=== PATIENT | male | born 1945 | race Caucasian/White ===

== ENCOUNTER 2016-12-10 10:33 | Day surgery (SDC) | payer OTHER ==
[~2016-12-10] VITALS: Ht 180.3 cm; Wt 124.6 kg
[2016-12-10] MEDS ORDERED: HEPARIN-D5W 25,000 U/250 ML 250 ML ONE (13:02)
[2016-12-10] MEDS ORDERED: HEPARIN SODIUM - IV 10,000 UNITS/10 ML VIAL ONE ×2 (13:03→15:46)
[2016-12-10] MEDS ORDERED: ISOPROTERENOL HCL 1 MG/5 ML AMP ONE (13:03)
[2016-12-10] MEDS ORDERED: PROTAMINE SULFATE 50 MG/5 ML VIAL ONE (13:03)
[2016-12-10 13:29] LABS: AUTOMATED NEUTROPHIL # 4.2 TH/MM3 (1.8-7.7); BASOPHIL # 0.1 TH/MM3 (0-0.2); BASOPHIL % 0.8 % (0.0-2.0); EOSINOPHIL % 0.6 % (0.0-4.0); HEMATOCRIT 38.6 % (39.0-51.0); HEMO FLAGS DIFF FINAL; LYMPH % 29.9 % (9.0-44.0); LYMPHOCYTE # 2.1 TH/MM3 (1.0-4.8); MEAN CELL VOLUME 95.8 FL (80.0-100.0); MEAN CORPUSCULAR HEMOGLOBIN 34.2 PG (27.0-34.0); MEAN CORPUSCULAR HGB CONC 35.7 % (32.0-36.0); MONO % 8.1 % (0.0-8.0); NEUT % 60.6 % (16.0-70.0); PLATELET COUNT 221 TH/MM3 (150-450); RED BLOOD COUNT 4.03 MIL/MM3 (4.50-5.90); RED CELL DISTRIBUTION WIDTH 13.6 % (11.6-17.2); WHITE BLOOD COUNT 6.9 TH/MM3 (4.0-11.0)
[2016-12-10 13:37] LABS: APTT (PATIENT) 36.3 SEC (24.3-30.1); INTERNATIONAL NORMALIZED RATIO 1.5 RATIO; PROTHROMBIN TIME - PATIENT 16.9 SEC (9.8-11.6)
[2016-12-10] MEDS ORDERED: WARF-23 PO (13:40)
[2016-12-10] MEDS ORDERED: ALLO300T2 PO (13:40)
[2016-12-10 13:57] LABS: BICARBONATE 25.6 MEQ/L (21.0-32.0); POTASSIUM 3.6 MEQ/L (3.5-5.1)
[2016-12-10 14:02] VITALS: BP 150/87; PULSE 76; RESP 18; TEMP 97.5; O2SAT 94
[2016-12-10] MEDS ORDERED: PROPOFOL 200 MG/20 ML AMP IV ONE (14:10)
[2016-12-10] MEDS ORDERED: TRANEXAMIC ACID INJ 1,000 MG/10 ML AMP IV ONE (14:10)
[2016-12-10] MEDS ORDERED: METOPROLOL TARTRATE 25 MG TAB PO PRN (14:30)
[2016-12-10] MEDS ORDERED: LACTATED RINGER'S 1000 ML IV PRN (14:30)
[2016-12-10] MEDS ORDERED: SODIUM CHLORID 0.9% 500 ML INJ 500 ML IV SCH (14:30)
[2016-12-10] MEDS ORDERED: CHLORHEXIDINE GLUCONATE 2 % 1 PACK (2 CLOTHS) TOPICAL PRN (14:30)
[2016-12-10] MEDS ORDERED: INSULIN HUMAN REGULAR 1,000 UNITS/10 ML VIAL SQ PRN (14:30)
[2016-12-10] MEDS ORDERED: POVIDONE IODINE 5% (ANTISEPSIS KIT) 4 APPLICATIONS EACH NARE PRN (14:30)
[2016-12-10] MEDS ORDERED: LORazepam 1 MG TAB SL SCH (14:30)
[2016-12-10] MEDS ORDERED: SODIUM CHLORID 0.9% 500 ML IV PRN (14:30)
[2016-12-10] MEDS ORDERED: LEVOFLOXACIN 500 MG PREMIX INJ 100 ML IV ONE (14:31)
[2016-12-10] MEDS ORDERED: HEPARIN-NS/PF INJ 500 ML ONE (14:31)
[2016-12-10] MEDS ORDERED: FUROSEMIDE 40 MG/4 ML VIAL ONE (17:25)
[2016-12-10] MEDS ORDERED: METOCLOPRAMIDE HCL 10 MG/2 ML VIAL IV PRN (17:30)
[2016-12-10] MEDS ORDERED: LORazepam 2 MG/ML VIAL IV PRN (17:30)
[2016-12-10] MEDS ORDERED: oxyCODONE/ACETAMINOPHEN 5 MG/325 MG TAB PO PRN ×2 (17:30)
[2016-12-10] MEDS ORDERED: SODIUM CHLOR 0.9% 250 ML INJ 250 ML IV PRN (17:30)
[2016-12-10] MEDS ORDERED: BACITRACIN OINT 0.9 GM PKT TOP ONE (17:30)
[2016-12-10] MEDS ORDERED: ONDANSETRON HCL 4 MG/2 ML VIAL IV PRN (17:30)
[2016-12-10] MEDS ORDERED: ATROPINE SULFATE 1 MG/ML VIAL IV PRN (17:30)
[2016-12-10] MEDS ORDERED: LIDOCAINE HCL 1% 50 ML VIAL INFIL PRN (17:30)
[2016-12-10] MEDS ORDERED: fentaNYL CITRATE 250 MCG/5 ML AMP ONE (17:57)
--- NOTE | 2016-12-10 18:04 | CATHPROC ---
[facility] Report Study Information Study Number Admission Scheduled Start Study Start [id number] Dec 10 2016 10:33AM 12/10/2016 Dec 10 2016 1:57PM [place] Service Electrophysiology Study Admit Source Facility Department Other [facility] Physician and Clinical Staff Initial Traci Mcduffie Lie Detector Operator Leigh Renner,ANANT Lie Detector Operator Miranda Tubbs,CLINICAL MANAGER HOME CARE TECH2 Other Anesthesia, SODA CLERK Recorder Jodi Rendon,TIMO Wilsonub Irasema Leong,RT(R) TECH2 Procedures Performed Procedure Location (Site) Vessel Name Cardioversion ICE CATHETER INSERT RA Atruim RF Ablation LT. ATRIUM LT. ATRIUM Equipment Time Store Receiver Description Size Mfg Part Number Used/Scraped NEEDLE, TRANSSEPTAL NRG 98 14:42 [facility] [id number] Used C1 [employer]/ EP 14:42 KIT, TRANSDUCER / AFIB [id number] Used PACER [id number] CATHETER, TACTICATH ABLAT BUNDLE 14:42 BUNDLE-[facility] Used 65 BUNDLE *[id number] BUNDLE [id number] CATHETER, FR7 OPTIMA SPIRAL 14:42 BUNDLE-[facility] FR7 *[id number] Used BUNDLE BUNDLE [id number] 14:42 BUNDLE-[facility] CATHETER, JSN, QUAD BUNDLE FR 5 *[id number] Used BUNDLE [id number] 14:42 BUNDLE-[employer] CATHETER, JSN, QUAD BUNDLE FR 5 *[id number] Used BUNDLE [id number] SET, COOL [place]INT TUBING 14:42 BUNDLE-[employer] K[facility]IN *[id number]- Used BUNDLE BUNDLE SHEATH, FR8.5 STEERABLE SM 14:42 BUNDLE-[facility] K[facility]IN 71CM [id number] Used 71CM BUNDLE COVER, TRANSDUCER CABLE 14:42 [employer] [employer] [id number] Used ACUNAV 14:42 CORDIS/PACER SHEATH, FR10 HOME 11CM FR 10 [id number] Used 14:42 CORDIS/PACER SHEATH, FR9 HOME 11CM FR 9 [id number] Used [id number] 14:42 [employer] PACK, CCL CUSTOM * Used *[id number] 14:42 MEDLINE PACER PECK, LIMB * 2690 *[id number] Used [id number] 14:42 [employer] MEDICAL SHEATH, FR4.5 PRELUDE 11CM FR 4.5 Used [id number] 14:42 NAMIC TUBING, HIGH PRESSURE 48" 48" Used *[id number] 14:42 NAMIC TUBING, HIGH PRESSURE 48" 48" Used *[id number] 14:42 [employer] MEDICAL BLANKET,WARM AIR CCL * Used *[id number] 14:42 [facility] MEDICAL ELECTRODE KIT, ROSAURA X SURFACE * [id number] Used 14:42 [facility] MEDICAL SHEATH, EPS, FR6 FAST CATH FR [id number] 14:42 [facility] MEDICAL SHEATH, EPS, FR7 FAST CATH FR [id number] 14:42 [facility] MEDICAL SHEATH, EPS, FR8 FAST CATH FR 8 [id number] Used CATHETER, ACUNAV FR10 ICE [id number] 15:34 RAJAT FR 10 Used (RAJAT) *[id number] [facility] PAD, ELECTROSURGICAL 14:42 * [id number] *[id number] Used SURGICAL GROUNDING (BLUE) History: Allergies Allergy Reaction No Known Allergies History: Risk Factors Hypertension Dyslipidemia Previous Heart Failure Yes Yes Yes Chronic Lung Disease Labs Hgb (g/dl) Hct (%) RBC (MIL/MM3) WBC (l/cumm) Platelets (thousands) 11.60-17.00 35.00-51.00 4.00-5.90 4.00-11.00 150.00-450.00 13.0 38 4 6.9 221 Glucose (mg/dl) BUN (mg/dl) Creatinine (mg/dl) BUN:Creatinine (1:x) 74.00-106.00 7.00-18.00 0.50-1.30 10.00-20.00 88 11 0.9 12.2 Na (meq/l) K (meq/l) 136.00-145.00 3.50-5.10 141 3.6 INR (PTT:PT) 0.90-1.10 1.5 Medication Medication Total Dose (Bolus/Oral) Medication Total Dosage/Unit 1% XYLOCAINE 40 mL HEPARIN 71657 units LASIX 40 mg PROTAMINE 40 mg Medications (Bolus/Oral) Medication Time Given Dosage/Unit Administered By Reason 1% XYLOCAINE 12/10/2016 3:21:17 PM 20 mL Traci Abel 20 mL 1% XYLOCAINE given in lab by Traci Abel in Left Groin via Subcutaneous. 1% XYLOCAINE 12/10/2016 3:30:00 PM 20 mL Traci Abel 20 mL 1% XYLOCAINE given in lab by Traci Abel in Right Groin via Subcutaneous. HEPARIN 12/10/2016 3:34:54 PM 78563 units Anesthesia, SODA CLERK As per physicians v erbal order 93329 units HEPARIN given in lab by Anesthesia, SODA CLERK via Peripheral IV. Ordered by Traci Abel. [place] son: As per physicians verbal order. HEPARIN 12/10/2016 3:48:00 PM 2000 units Anesthesia, SODA CLERK As per physicians ve rbal order 2000 units HEPARIN given in lab by Anesthesia, SODA CLERK via Peripheral IV. Ordered by Traci Abel. Reas on: As per physicians verbal order. HEPARIN 12/10/2016 4:03:45 PM 4000 units Anesthesia, SODA CLERK As per physicians ve rbal order 4000 units HEPARIN given in lab by Anesthesia, SODA CLERK via Peripheral IV. Ordered by Traci Abel. Reas on: As per physicians verbal order. HEPARIN 12/10/2016 4:16:15 PM 4000 units Anesthesia, SODA CLERK As per physicians ve rbal order 4000 units HEPARIN given in lab by Anesthesia, SODA CLERK via Peripheral IV. Ordered by Traci Abel. Reas on: As per physicians verbal order. LASIX 12/10/2016 5:20:17 PM 40 mg Anesthesia, SODA CLERK As per physicians verba l order 40 mg LASIX given in lab by Anesthesia, SODA CLERK via Peripheral IV. Ordered by Traci Abel. Reason: As per physicians verbal order. PROTAMINE 12/10/2016 5:23:31 PM 40 mg Anesthesia, SODA CLERK 40 mg PROTAMINE given in lab by Anesthesia, SODA CLERK via Peripheral IV. Ordered by Traci Abel. Medication (Drip) Medication Time Given Dosage/Unit Concentration/Unit Diluent (ml) Solution HEPARIN DRIP 12/10/2016 3:48:12 PM 1000 units/hr 92894 units 250 D5W 1000 units/hr HEPARIN DRIP given in lab by Anesthesia, SODA CLERK via Peripheral IV. Pump/Drip Flow = 10 ml /hr [place] [address] units in 250 ml. Ordered by Hanscy. Colten Reason: As per physicians verbal order. Initial Case Assessment Cardiovascular HR Rhythm NIBP Chest Pain 82 af 144/103 0 Edema Present Skin color Skin None Normal Warm Dry Circulatory - Right Pulses Dorsalis Pedis 3 Scale (0,1,2,3,4,d) Circulatory - Left Pulses Dorsalis Pedis 3 Scale (0,1,2,3,4,d) Circulatory - Lower Extremities Color Lower Right Color Lower Left Normal Normal Neurological State Oriented to time-place- Alert Moves all extremities person Respiration - General Respiration Rate SpO2 (%) (B/min) 20 94 Final Case Assessment Cardiovascular HR Rhythm NIBP Chest Pain 69 sr 162/83 0 Edema Present Skin color Skin None Normal Warm Dry Circulatory - Right Pulses Dorsalis Pedis 3 Scale (0,1,2,3,4,d) Circulatory - Left Pulses Dorsalis Pedis 3 Scale (0,1,2,3,4,d) Circulatory - Lower Extremities Color Lower Right Color Lower Left Normal Normal Neurological State Oriented to time-place- Alert Moves all extremities person Respiration - General Respiration Rate SpO2 (%) O2 (lpm) (B/min) 18 92 4 Chronological Log Time Study Chronological Log 14:10:37 Patient arrived via Bed. 14:10:38 Patient Name, D.O.B, / [place] Verified By R.N. 14:10:39 Consent signed by the physician and the patient and verified by the [facility] staff. 14:10:40 Pre-op and post- op instructions given; patient acknowledges understanding of instructions. 14:10:41 Verbal Stimulation=2 Physical Stimulation=2 Airway=2 Respiration=2 TOTAL=8. (0=absent, 1=li mited, 2=present) 14:10:42 Anesthesia at bedside. Assumes care of patient. 14:10:44 Patient has been NPO for More than 6Hrs. 14:10:45 Skin Breakdown- 14:10:47 Disposable Defibrillator Pads Placed On Patient. 14:10:48 Patient Warmer Placed on the Table. 14:10:51 Jose Prominences Protected 14:10:52 A # 20 IV was noted in the Forearm (right). Grade = 0 0.9ns kvo 14:10:53 A # 20 IV was noted in the Forearm (left). Grade = 0 0.9ns kvo 14:10:54 History and physical on the chart or being dictated. 14:30:49 MD arrived. Assessment: Initial Case, HR=82 BPM, Rhythm=af, UAJP=000/103 mmhg, Chest Pain=0, Edema=None, Co amanda=Normal, Skin = Warm, Dry Right Pulses: Aniket Ped=3 Left Pulses: Aniket Ped=3 14:30:57 Lower Right Extremities: Color=Normal Lower Left Extremities: Color=Normal Neurological: State=Alert, Ox3, MYRICK Respiration: Resp=20 B/min, SpO2=94 % 14:33:32 Table restraints applied according to hospital policy 15:00:00 Condom cath placed per physician order. 15:01:40 Bilateral groins prepped with 2% chlorhexidine, and with a 3 min. waiting time. 15:07:29 Pressure channel 1 zeroed. 15:12:09 Reference ECG taken Time Out. Correct patient, procedure, procedure equipment, site and side verified with physicia n present. Time 15:16:07 concurred by MD, individual staff and SODA CLERK. Time Out #2 - Consents verified, patient in correct position, all results are labled and displa yed, safety precautions 15:16:11 taken, antibiotics administered. Time out concurred by MD, individual staff and SODA CLERK in procedu re 15:16:17 Case Start 15:17:08 WHIT IN PROGRESS 15:20:03 WHIT COMPLETE 15:21:17 20 mL 1% XYLOCAINE given in lab by Traci Abel in Left Groin via Subcutaneous. 15:21:49 Vascular access was obtained in the Fem Vein (left). 15:21:51 Vascular access was obtained in the Fem Vein (left). 15:22:05 Vascular access was obtained in the Fem Vein (left). 15:22:17 Vascular access was obtained in the Fem Art (left). A SHEATH, FR4.5 PRELUDE 11CM FR 4.5 was advanced into the Fem Art (left) using the Modified Josephine nessa technique. 15:22:43 0.9NS PRESSURE BAG CONNECTED 15:23:12 A SHEATH, EPS, FR6 FAST CATH FR 6 was advanced into the Fem Vein (left) using the Modified Seldinger technique. 15:23:22 A SHEATH, EPS, FR7 FAST CATH FR 7 was advanced into the Fem Vein (left) using the Modified Seldinger technique. 15:23:33 A SHEATH, FR10 HOME 11CM FR 10 was advanced into the Fem Vein (left) using the Modified S eldinger technique. 15:30:00 20 mL 1% XYLOCAINE given in lab by Traci Abel in Right Groin via Subcutaneous. 15:30:14 Vascular access was obtained in the Fem Vein (right). 15:30:18 A SHEATH, EPS, FR8 FAST CATH FR 8 was advanced into the Fem Vein (right) using the Modified Seldinger technique. A CATHETER, JSN, QUAD BUNDLE FR 5 was advanced vis Fem Vein (left) and placed in the CS. Placem ent was visually 15:33:11 confirmed under fluoroscopy. A CATHETER, JSN, QUAD BUNDLE FR 5 was advanced vis Fem Vein (left) and placed in the HIS. Place ment was 15:33:20 visually confirmed under fluoroscopy. 15:33:35 CATHETER, ACUNAV FR10 ICE (Xradia) FR 10 Was Postioned. 16646 units HEPARIN given in lab by Anesthesia, SODA CLERK via Peripheral IV. Ordered by Moni Abel Reason: As per 15:34:54 physicians verbal order. A SHEATH, FR8.5 STEERABLE SM 71CM BUNDLE 71CM was exchanged in the Fem Vein (right). This was n ecessary in 15:35:48 order for catheter support. 15:36:36 [place] in 15:39:10 A eps was advanced to the right atrium and passed through the septal wall to the left atriu m. 15:39:14 [place] out A CATHETER, FR7 OPTIMA SPIRAL BUNDLE FR7 was advanced vis Fem Vein (right) and placed in the LA . Placement 15:39:21 was visually confirmed under fluoroscopy. Mapping in progress. 15:40:04 Activated Clotting Time Drawn 15:47:34 ACT (Normal Range 90-180) = 301 2000 units HEPARIN given in lab by Anesthesia, SODA CLERK via Peripheral IV. Ordered by Traci Abel . Reason: As per 15:48:00 physicians verbal order. 1000 units/hr HEPARIN DRIP given in lab by Anesthesia, SODA CLERK via Peripheral IV. Pump/Drip Flow = 10 ml/hr using 15:48:12 [place] [address] units in 250 ml. Ordered by Traci Abel. Reason: As per phy sicians verbal order. 15:48:52 Mapping complete. Catheter was removed A CATHETER, TACTICATH ABLAT 65 BUNDLE was advanced vis Fem Vein (right) and placed in the LA. P lacement was 15:49:03 visually confirmed under fluoroscopy. 15:54:10 Activated Clotting Time Drawn 16:03:32 ACT (Normal Range 90-180) = 300 4000 units HEPARIN given in lab by Anesthesia, SODA CLERK via Peripheral IV. Ordered by Traci Abel . Reason: As per 16:03:45 physicians verbal order. 16:08:20 Activated Clotting Time Drawn 16:10:10 RF Ablation of the LT. ATRIUM with a eps. 16:16:08 ACT (Normal Range 90-180) = 322 4000 units HEPARIN given in lab by Anesthesia, SODA CLERK via Peripheral IV. Ordered by Traci Abel . Reason: As per 16:16:15 physicians verbal order. 16:23:25 Activated Clotting Time Drawn 16:29:45 ACT (Normal Range 90-180) = 365 16:47:33 ECG rhythm of AF noted. Patient cardioverted at 300 joules. Incomplete Success synch 16:47:52 ECG rhythm of AF noted. Patient cardioverted at 300 joules. Incomplete Success synch. Remai ns in AF. 16:48:42 RF Ablation of the LT. ATRIUM with a CATHETER, TACTICATH ABLAT 65 BUNDLE. 17:03:01 ECG rhythm of AF noted. Patient cardioverted at 360 joules. Success synch 17:05:04 ACT (Normal Range 90-180) = 369 17:06:11 Ablation complete. Catheter was removed A SHEATH, FR9 HOME 11CM FR 9 was exchanged in the Fem Vein (right). This was necessary in ord er to achieve 17:18:42 vascular hemostasis. 17:19:10 Heparin gtt off. 17:20:00 Catheters removed without difficulty 40 mg LASIX given in lab by Anesthesia, SODA CLERK via Peripheral IV. Ordered by Traci Abel. Reaso n: As per physicians 17:20:17 verbal order. 17:20:54 Sheath(s) left in place, sutured, 0.9ns kvo connected and will be removed in Holding Area 17:23:31 40 mg PROTAMINE given in lab by Anesthesia, SODA CLERK via Peripheral IV. Ordered by Moni Abel 17:35:17 Activated Clotting Time Drawn 17:37:21 ACT (Normal Range 90-180) = 175 17:39:12 PACU called. Spoke to Ronald. 17:39:32 Bedside Report will be given. 17:40:00 Sheaths removed; pressure applied to access sites by DC to right fem and HH to left fem sit es. 17:56:08 Case End 17:56:53 No case complications noted. 17:56:56 Cine recording checked. Assessment: Final Case, HR=69 BPM, Rhythm=sr, INZD=035/83 mmhg, Chest Pain=0, Edema=None, [place] r=Normal, Skin = Warm, Dry Right Pulses: Aniket Ped=3 Left Pulses: Aniket Ped=3 17:58:04 Lower Right Extremities: Color=Normal Lower Left Extremities: Color=Normal Neurological: State=Alert, Ox3, MYRICK Respiration: Resp=18 B/min, SpO2=92 %, O2=4 lpm 17:59:38 Defibrillator and ground pads removed. Skin intact. 18:10:27 Sterile dressing applied to sites. Sites wnl. 18:12:46 Patient moved to stretcher End Study - Contrast Media Used In Study Contrast Total Opened (mL) Total Used (mL) Total Wasted (mL) Unspecified 0 0 0 End Study - Maximum Contrast Load Max Contrast Load (mL) 696.2 End Study - Radiation Exposure Fluoro Time (minutes) 2.0 End Study - Sheaths Sheaths Pulled By Sheath Hold Time (min) Irasema Leong 35 End Study - Patient Disposition Complications Transferred To Interventional Outcome No Telemetry Bed successful
[2016-12-10] MEDS ORDERED: DO NOT ADM ANY ANTICOAGULANT DRUGS PRN (18:27)
[2016-12-10 19:00] VITALS: BP 154/82; PULSE 66; PULSE 68; RESP 20; TEMP 97.6; O2SAT 96
[2016-12-10 20:00] VITALS: PULSE 68
[2016-12-10 21:00] VITALS: PULSE 72
[2016-12-10] MEDS: APIXABAN 5 MG TABLET PO SCH (21:06)
[2016-12-10 22:00] VITALS: PULSE 72
[2016-12-10 23:00] VITALS: BP 159/86; PULSE 69; PULSE 72; RESP 20; TEMP 98; O2SAT 95
[2016-12-11] VITALS (12 sets, daily range): BP systolic 127–147; BP diastolic 56–82; PULSE 68–79; RESP 18–20; TEMP 98–98.6; O2SAT 93
[2016-12-11] MEDS: APIXABAN 5 MG TABLET PO SCH (07:42)
[2016-12-11 08:01] LABS: APTT (PATIENT) 35.7 SEC (24.3-30.1); INTERNATIONAL NORMALIZED RATIO 1.4 RATIO; PROTHROMBIN TIME - PATIENT 16.1 SEC (9.8-11.6)
[2016-12-11] MEDS ORDERED: ALLOPURINOL 300 MG TAB PO SCH (09:00)
--- NOTE | 2016-12-11 09:03 | HHI.PR ---
Subjective Remarks Feeling better Objective Vital Signs Date Time Temp Pulse Resp B/P Pulse Ox O2 Delivery O2 Flow Rate FiO2 12/11/16 06:08 68 12/11/16 05:00 74 12/11/16 04:00 72 12/11/16 03:00 98.0 79 20 127/56 93 12/11/16 03:00 93 Room Air 12/11/16 03:00 70 12/11/16 02:00 70 12/11/16 01:00 68 12/11/16 00:00 72 12/10/16 23:00 95 Nasal Cannula 2.00 12/10/16 23:00 98.0 69 20 159/86 95 12/10/16 23:00 72 12/10/16 22:18 18 12/10/16 22:00 72 12/10/16 21:00 72 12/10/16 20:00 68 12/10/16 19:00 96 Nasal Cannula 2.00 12/10/16 19:00 97.6 68 20 154/82 96 12/10/16 19:00 66 12/10/16 18:53 98.3 62 17 154/74 95 Nasal Cannula 2 12/10/16 18:45 64 19 138/83 95 Nasal Cannula 2 12/10/16 18:30 66 14 148/73 93 Nasal Cannula 2 12/10/16 18:28 98.3 66 16 152/77 93 Nasal Cannula 2 12/10/16 14:02 97.5 76 18 150/87 94 I/O 12/10/16 12/10/16 12/10/16 12/11/16 12/11/16 12/11/16 07:00 15:00 23:00 07:00 15:00 23:00 Intake Total 1020 ml 720 ml Output Total 410 ml 1300 ml Balance 610 ml -580 ml Intake Oral 20 ml 720 ml Other 1000 ml Output Urine Total 400 ml 1300 ml Estimated Blood Loss 10 ml Result Diagram: 12/10/16 1250 12/10/16 1250 Imaging Alert, fully oriented Lungs: ventilated Heart: S1, S2 regular Abdomen: obese, no mass Ext: no edema Vital Signs Date Time Temp Pulse Resp B/P Pulse Ox O2 Delivery O2 Flow Rate FiO2 12/11/16 06:08 68 12/11/16 05:00 74 12/11/16 04:00 72 12/11/16 03:00 98.0 79 20 127/56 93 12/11/16 03:00 93 Room Air 12/11/16 03:00 70 12/11/16 02:00 70 12/11/16 01:00 68 12/11/16 00:00 72 12/10/16 23:00 95 Nasal Cannula 2.00 12/10/16 23:00 98.0 69 20 159/86 95 12/10/16 23:00 72 12/10/16 22:18 18 12/10/16 22:00 72 12/10/16 21:00 72 12/10/16 20:00 68 12/10/16 19:00 96 Nasal Cannula 2.00 12/10/16 19:00 97.6 68 20 154/82 96 12/10/16 19:00 66 12/10/16 18:53 98.3 62 17 154/74 95 Nasal Cannula 2 12/10/16 18:45 64 19 138/83 95 Nasal Cannula 2 12/10/16 18:30 66 14 148/73 93 Nasal Cannula 2 12/10/16 18:28 98.3 66 16 152/77 93 Nasal Cannula 2 12/10/16 14:02 97.5 76 18 150/87 94 Current Medications Medications (Trade) Dose Ordered Sig/Anastasiya Route Start Time Stop Time Status Last Admin Lactated Ringer's 1,000 ml @ 30 mls/hr Q24H PRN IV 12/10/16 14:30 12/13/16 14:29 Sodium Chloride 500 ml @ 30 mls/hr [id number] PRN IV 12/10/16 14:30 12/13/16 14:29 (NS 500 ml Inj) 500 ml @ 30 mls/hr [id number] IV 12/10/16 14:30 (Percocet 5-325 Mg) 1 tab Q4H PRN PO 12/10/16 17:30 (Percocet 5-325 Mg) 2 tab Q4H PRN PO 12/10/16 17:30 12/10/16 21:06 (Ativan Inj) 0.5 mg UNSCH PRN IV 12/10/16 17:30 12/11/16 17:29 Atropine Sulfate 0.5 mg 0.5 mg UNSCH PRN IV 12/10/16 17:30 (NS 250 ml Inj) 250 ml @ 500 mls/hr ONCE PRN IV 12/10/16 17:30 12/11/16 17:29 (Reglan Inj) 10 mg Q4H PRN IV 12/10/16 17:30 (Zofran Inj) 4 mg Q4H PRN IV 12/10/16 17:30 (Xylocaine 1% Inj (50 ml)) 10 ml UNSCH PRN INFIL 12/10/16 17:30 12/11/16 17:29 (Zyloprim) 300 mg DAILY PO 12/11/16 09:00 12/11/16 07:42 (Eliquis) 5 mg BID PO 12/10/16 21:00 12/11/16 07:42 Miscellaneous Information ALL NURSING DEPARTME... UNSCH PRN .XX 12/10/16 18:27 12/11/16 18:26 Assessment and Plan Problem List: (1) Atrial fibrillation Status: Acute Plan: SP ablation. In sinus rhythm. Doing better Very enlarge left atrium. Amio will be initiated. Also INR labile, eliquis started yesterday Will be DH Follow up as previously scheduled Traci Abel MD Dec 11, 2016 09:02
[2016-12-11] MEDS ORDERED: APIX5TAB PO (09:08)
[2016-12-11] MEDS ORDERED: AMIO1TAB PO (09:08)
[2016-12-11] MEDS ORDERED: AMIO400T PO (09:08)
[2016-12-11] MEDS ORDERED: AMIODARONE 200 MG TAB PO SCH (09:15)
--- NOTE | 2016-12-11 09:44 | MA ---
cc: JADA ABEL DATE: 12/11/2016 PROCEDURE Electrophysiology study, CS cannulation, 3-D mapping, transeptal approach, right and left heart catheterization, intracardiac echo, radiofrequency ablation of atrial fibrillation, left atrial tachycardia, pulmonary vein isolation, posterior ablation, roof line creation, floor line creation, mitral valve isolation, left atrial tachycardia ablation, cardioversion, repeat electrophysiology study post ablation. That was a very complex and difficult case. INDICATION Mr. Toth is a 71-year-old gentleman with atrial fibrillation very symptomatic, heart rate very difficult to control despite multiple medication on anticoagulation. He is to undergo electrophysiology study and ablation. The risks, the nature and the benefit of the procedure were clearly stated to him. The risks include pneumothorax, cardiac perforation, stroke, need for open heart surgery and even . The patient understood and agreed to proceed. DETAILS OF PROCEDURE As written informed consent was obtained prior to transesophageal echo the patient was kept on the table where he was prepped and draped in the usual sterile fashion. Conscious sedation was initiated and maintained throughout the procedure by the anesthesiologist. Once sedation was verified, the right inguinal area was anesthetized with 2% Xylocaine. Using modified Seldinger technique, the right femoral vein was cannulated on one occasion and one guidewire was advanced. Over the wire an 8-[place] Hemaquet was advanced. Then the left femoral vein was cannulated on three occasions and three guidewires were advanced. Over the wires a 6, 7 and 10 [place] Hemaquet were advanced. The left femoral artery was cannulated on one occasion and one guidewire was advanced. Over the wire a 4-[place] Hemaquet was advanced. Then under fluoroscopic guidance through the 6 and 7-[place] Hemaquet, two 5-[place] Toña curved quadripolar electrophysiology catheters were advanced and position along the His as well as coronary sinus. Basic intervals were measured. The patient was in atrial fibrillation. Through the 10-[place] Hemaquet, a Cordis-Damon AcuNav intracardiac echo catheter was advanced and positioned at the right atrium. Multiple views were obtained. There was minimal pericardial effusion. The pulmonary vein was seen. The atrial septa were visualized. The aortic root was seen. There was moderate to severe left atrial enlargement. Then the 8-[place] Hemaquet in the right femoral vein was exchanged for an Agilis transseptal sheath that was placed all the way to the superior vena cava. Through this sheath a [place] needle was advanced. Then the sheath, dilator and the needle were pulled back progressively until foci engaged. Once engaged the needle was advanced. RF was delivered for 2 seconds. I was able to cross into the left atrium. Once the needle crossed the dilator was advanced. Once the dilator crossed the sheath was advanced. Once the sheath crossed the dilator and the needle were removed. Intracardiac echo showed the sheath in good position. The patient already received 10,000 units of heparin. The goal was to keep an ACT around 350 during the ablation. Through the sheath a [place] 20-post circumferential catheter was advanced. Using the [employer] mapping system a three-dimensional configuration of the left atrium was obtained. Points were taken at the left superior and inferior vein, right superior and inferior vein, mitral valve and appendage. Then the circumferential catheter was replaced by a [place] TactiCath 65 cm, 3.5 mm irrigated-tip mapping and radiofrequency ablation catheter. First I did isolate the left superior and inferior vein. I made a muckleshoot around both veins. Then a mitral line was created. Then a roof line was created. A posterior floor line was created. Then I did isolate the right superior and inferior vein. Then I proceeded with mitral valve isolation. At this point I proceeded with cardioversion. The patient was still in atrial fibrillation. Then I proceeded with isolation of the left atrial appendage. The patient was in left atrial tachycardia. Mapping was performed. Further ablation was done at the anterior wall. At this point cardioversion was attempted. The patient was still in atrial fibrillation, atrial tachycardia. Subsequently I did isolate the coronary sinus. The patient was cardioverted into sinus rhythm. At that point I proceeded with atrial pacing protocol. No tachyarrhythmia was induced. The procedure was complete. All catheters were removed. I decided not to use Isuprel because of the patient's blood pressure and also the size of the left atrium. No incident report. That was a very complex and difficult case. Blood loss minimal. FINDINGS 1. Electrocardiogram: At baseline the patient was in atrial fibrillation. Post procedure the patient was in sinus rhythm. 2. Basic interval: Basic cycle length was around 510 milliseconds. Post ablation it was around 180 milliseconds. 3. Atrial pacing protocol: No tachyarrhythmia was induced post ablation. 4. Tachyarrhythmia: Atrial fibrillation was mapped and ablated. atrial tachycardia was mapped and ablated. Ablation was successful. CONCLUSIONS Successful electrophysiology study, mapping and radiofrequency ablation of atrial fibrillation, pulmonary vein isolation, posterior ablation, anterior ablation, mitral line creation, mitral valve isolation, left atrial tachycardia ablation, intracardiac echo, roof line creation, floor line creation and cardioversion. COMMENT/RECOMMENDATION The patient is going to be transferred to the recovery room. He will be observed and will be discharged home in the morning if stable. INR was 1.5. The patient has a very labile INR. Coumadin is up and down. This is an indication for NOAC. I am going to initiate Eliquis at 5 mg twice a day. Also amiodarone will be initiated during hospitalization. Jada Abel MD HS/BT /8:51 AM /9:20 AM
--- NOTE | 2016-12-11 14:39 | EKG ---
Date Performed: 12/10/2016 Time Performed: 12:06:56 PTAGE: 71 years EKG: Atrial fibrillation. Abnormal ECG NO PREVIOUS TRACING DOCTOR: Chris Hernandez Interpretating Date/Time 12/11/2016 14:35:38
--- NOTE | 2016-12-11 14:52 | EKG ---
Date Performed: 12/10/2016 Time Performed: 18:43:37 PTAGE: 71 years EKG: Sinus rhythm NONSPECIFIC ST & T-WAVE ABNORMALITY BORDERLINE ECG PREVIOUS TRACING : 12/10/2016 12.06 Since previous tracing, no significant change noted DOCTOR: Chris Hernandez Interpretating Date/Time 12/11/2016 14:51:52
--- NOTE | 2016-12-11 14:55 | EKG ---
Date Performed: 12/11/2016 Time Performed: 06:14:24 PTAGE: 71 years EKG: Sinus rhythm Prolonged QT interval Inferior/lateral ST-T changes are nonspecific Borderline ECG PREVIOUS TRACING : 12/10/2016 18.43 Since previous tracing, no significant change noted DOCTOR: Chris Hernandez Interpretating Date/Time 12/11/2016 14:55:12
[2016-12-16] MEDS ORDERED: AMIODARONE 200 MG TAB PO SCH (09:00)
--- NOTE | 2016-12-28 12:42 | ECHRPT ---
Indication: CONCLUSIONS Moderate left atrial enlargement. No clot seen in left atrial nor left atrial appendage. Trivial mitral regurgitation Adequate left ventricular systolic function. Ejection Fraction around 55-60% BP: / HR: Rhythm: Technical Quality: Medications Sedation was administered by anesthesiology Complications None Proc. Components FINDINGS LEFT VENTRICLE Adequate left ventricular systolic function Ejection fraction 55-60% LEFT ATRIUM Moderate enlargement ATRIAL APPENDAGES No clot seen ATRIAL SEPTUM No right to left shunt MITRAL VALVE Trivial regurgitation TRICUSPID VALVE Tricvial regurgitation PERICADIUM no effusion Traci Abel MD (Electronically Signed) Final Date:28 December 2016 12:41
== END 2016-12-11 11:33 | disposition home or self-care (01) ==
LOC: HDOC 10:33 → HDIC 10:35 → HCIS 19:15 → HDOC 12-11 11:33
PROVIDERS: ATTEND Internal Medicine Interventional Cardiology
DX: I48.2 Chronic atrial fibrillation (principal); I45.81 Long QT syndrome; J44.9 Chronic obstructive pulmonary disease, unspecified; I10 Essential (primary) hypertension; E78.5 Hyperlipidemia, unspecified; G40.909 Epilepsy, unspecified, not intractable, without status epilepticus; F10.10 Alcohol abuse, uncomplicated; E66.9 Obesity, unspecified; Z68.38 Body mass index [BMI] 38.0-38.9, adult; Z85.038 Personal history of other malignant neoplasm of large intestine; Z87.891 Personal history of nicotine dependence; Z86.73 Personal history of transient ischemic attack (TIA), and cerebral infarction without residual deficits; Z86.718 Personal history of other venous thrombosis and embolism; Z79.01 Long term (current) use of anticoagulants; Z79.899 Other long term (current) drug therapy
CPT/HCPCS: 80048; 85002; 85025; 85610; 85730; 86850; 86900; 86901; 92960; 93005; 93312; 93320; 93325; 93613; 93656; 93662; C1730; C1731; C1732; C1759; C1766; C2630; J1644; J1940; J1956; J2720; J3010